=== PATIENT | female | born 1985 | race American Indian/Alaskan Native ===

== ENCOUNTER 2017-05-13 05:44 | Outpatient (CLI) | payer OTHER ==
[2017-05-13 06:08] VITALS: BP 138/83
[2017-05-13] MEDS ORDERED: D5LR 1,000 ML IV SCH (07:00)
[2017-05-13 07:46] LABS: Basophils % (Auto) 0.5 % (0.0-1.8); Eosinophils % (Auto) 0.9 % (0.0-4.3); Hematocrit 33.2 % (30.3-42.9); Hemoglobin 11.2 gm/dl (10.1-14.3); Mean Corpuscular HGB Conc 34 % (30-34); Mean Corpuscular Hemoglobin 27 pg (28-32); Mean Corpuscular Volume 79 fl (79-97); Platelet Count 142 K/mm3 (140-440); Red Cell Distribution Width 15.7 % (13.2-15.2); White Blood Count 6.2 K/mm3 (4.5-11.0)
--- NOTE | 2017-05-13 09:03 | Ultrasound Report ---
Limited OB sonogram: History: WALDEMAR Findings Gestation: Single Position: Cephalic Amniotic Fluid: WALDEMAR = 7.8 cm Heart Rate: 139 BPM
[2017-05-13 09:25] LABS: HIV-1 Antigen p24 Non React (Non React); HIVR-1/2 Ab Non React (Non React)
== END 2017-05-13 07:20 | disposition home or self-care (01) ==
LOC: TRG 05:44
PROVIDERS: ATTEND Obstetrics & Gynecology
DX: O47.1 False labor at or after 37 completed weeks of gestation (principal); Z3A.37 37 weeks gestation of pregnancy
CPT/HCPCS: 36415; 59025; 76815; 80074; 85025; 86592; 86762; 87806; 96360; J7121